=== PATIENT | female | born 1980 | race Caucasian/White ===

== ENCOUNTER → 2016-09-23 | Day surgery (SDC) | payer MEDICAID ==
[~2016-09-23] VITALS: Ht 160 cm; Wt 137.0 kg
[~2016-09-23] MED LIST: *HYDROmorphone PF 1 MG VIAL PERIprocedural Use ONLY ONE; *RESP: ALBUTEROL 2.5 MG/3 ML NEB (PRN) PERIprocedural Use ONLY NEB ONE; ACET300T2 PO; ALBUAER3 INH; AMOX875T PO; BENZ1CAP8 PO; BUPIVACAINE/EPINEPHRINE 0.5% PF 30 ML VIAL ONE; CETI10CH CHEW; DILT120T PO; FAMOTIDINE 20 MG/2 ML VIAL ONE; FLUO-1 PO; FLUT50SP EACH NARE; HYDROmorphone HCL PF 1 MG/ML VIAL ONE; IRON100T PO; KETOROLAC TROMETHAMINE 30 MG/ML (IVP) VIAL ONE; LACTATED RINGER'S 1000 ML INJ 1,000 ML ONE; LISI10TA3 PO; MECL-62 PO; MIDAZOLAM HCL 2 MG/2 ML VIAL ONE; MORPHINE SULFATE 10 MG/ML INJ ONE; ONDANSETRON HCL 4 MG/2 ML VIAL IV PUSH ONE; ONDANSETRON HCL 4 MG/2 ML VIAL ONE; PROPOFOL 200 MG/20 ML AMP IV ONE; SYMB160A INH; TRIAMCINOLONE ACETONIDE 40 MG/ML VIAL ONE; [UNRECOGNIZED DRUG - CODE] PO; fentaNYL CITRATE 250 MCG/5 ML AMP ONE
[2016-09-23 07:40] VITALS: BP 136/89; PULSE 71; RESP 16; TEMP 98.1; O2SAT 98
[2016-09-23 12:40] VITALS: BP 133/77; PULSE 84; RESP 20; TEMP 98.7; O2SAT 96
--- NOTE | 2016-09-27 10:03 | MP ---
cc: AKIN FERNANDO M.D. DATE OF OPERATION 09/23/[address] Akin Fernando PREOPERATIVE DIAGNOSIS Osteochondral lesion and osteoarthritis of the right knee joint. POSTOPERATIVE DIAGNOSES 1. Osteochondral lesion and osteoarthritis of the right knee joint. 2. Chondromalacia of the patellofemoral joint. PROCEDURE Arthroscopic debridement with chondroplasty patella and chondroplasty medial femoral condyle. DETAILS OF PROCEDURE The patient was placed on the operating table in the supine position and adequate general anesthesia was administered by Dr. Loco, the anesthesiologist. The right knee was prepped and draped in the usual sterile fashion. An Esmarch bandage was used to exsanguinate the right lower extremity and a pneumatic tourniquet was inflated to level of the mid-thigh to 300. A routine time-out was called and the patient's name, location, procedure, etc., were fully confirmed. An anterolateral stab wound was made for introduction of the in-flow cannula with the scope applied and a systematic examination of the knee joint included palpation with a probe to the patella articular surface and there did appear to be surrounding synovitis. The medial compartment was entered and the cruciate ligaments appeared to be intact but frayed. The medial meniscus was also found to be intact and stable. However, I did note the presence of a rather prominent osteochondral lesion involving the medial femoral condyle at the level of the articular surface measuring approximately 2 to 3 cm; it was frayed and fibrillated. Instrumentation was applied through an anteromedial portal and the shaver was then placed over the medial femoral condyle and the osteochondral lesion was fully debrided and a full chondroplasty performed removing all loose fragments. The lateral compartment was pristine in condition. The suprapatellar pouch was reentered and a limited synovectomy was performed there along with a chondroplasty of the articular surface of the patella. No loose fragments were identified and the knee joint was then thoroughly irrigated and aspirated of all fluid, following which all instruments were removed and the two stab wounds closed with simple 3-0 nylon. An intraarticular injection to the lateral portal was carried out with 10 cc of 0.5% Marcaine with epinephrine along with 1 cc of Kenalog. Xeroform gauze was applied over both wounds and a bulky dressing applied around the knee. Examination of the foot revealed adequate return of circulation. Sponge count, needle counts and instrument counts were reported correct x 2. The estimated blood loss was nil. The total tourniquet time was 11 minutes. The procedure was tolerated well and the patient went to the recovery room in satisfactory condition. MD WALT Musa/ABDIEL /10:07 AM /9:55 AM
== END | disposition home or self-care (01) ==
LOC: PHSDC 06:39
PROVIDERS: ATTEND Orthopaedic Surgery
DX: M93.261 Osteochondritis dissecans, right knee (principal); M17.11 Unilateral primary osteoarthritis, right knee; M22.41 Chondromalacia patellae, right knee
CPT/HCPCS: 01400; 29877; J1170; J1885; J2250; J2270; J2405; J3010; J3301; J7120; J7613